=== PATIENT | female | born 1985 | race Caucasian/White ===

== ENCOUNTER 2021-03-08 05:48 | Day surgery (SDC) | payer BC, SELFPAY ==
[2021-01-10 14:27] VITALS: BMI 41.9
--- NOTE | 2021-03-06 10:51 | VDLE_ITS ---
Reason For Study: R/O DVT RIGHT LEFT GSV is normal. GSV is normal. CFV is compressible, spontaneous, phasic, CFV is compressible, spontaneous, phasic, competent and demonstrates normal competent, and demonstrates normal augmentation. augmentation. FV is compressible, spontaneous, phasic, FV is compressible, spontaneous, phasic, competent and demonstrates normal competent and demonstrates normal augmentation. augmentation. POP V is compressible, spontaneous, phasic, POP V is compressible, spontaneous, phasic, competent and demonstrates normal competent and demonstrates normal augmentation. augmentation. T/P Trunk is compressible. T/P Trunk is compressible. PTV is compressible. PTV is compressible. RT PerV is compressible. LT PerV is compressible. Procedure This is a venous duplex using B-mode, color flow and spectral Doppler. Exam performed in department. A preliminary report was called and/or faxed to Juan. VL/Venous Duplex US - Tay Extrem Interpretation Summary No evidence for acute deep venous thrombosis bilateral lower extremities with p atent and compressible bilateral great saphenous veins. Ordering Physician: Jovita Martinez Referring Physician: Lisa Rodriguez Performed By: Malu Adams RVT
[2021-03-08] VITALS (9 sets, daily range): BP systolic 103–135; BP diastolic 45–97; PULSE 75–84; RESP 16–82; TEMP 36.3–36.8; O2SAT 16–97; BMI 42.3
[2021-03-08 06:24] LABS: Internal QC Validated? YES +Cl - CLEAR BKGD; Pregnancy, Urine Negative Negative
[2021-03-08] MEDS: Lactated Ringers 1,000 ML 100 ML IV ×2 (06:38→08:20)
--- NOTE | 2021-03-08 07:26 | PCM.HP.BLA ---
History and Physical I have re-examined the patient. There are no clinical changes since date of exam. Intake Intake Visit Reasons: LEFT KNEE Is patient in pain?: Yes Allergies Penicillins Allergy (Severe, Verified 01/10/21 14:28) anaphalxis strawberry Allergy (Verified 01/10/21 14:28) anaphalxis loratadine [From Claritin] Adverse Reaction (Severe, Verified 01/10/21 14:28) out of body experience Medications cyproheptadine 4 mg tablet 4 mg PO tab 01/10/21 [History Confirmed 02/20/21] diazepam 5 mg tablet tab PO 01/10/21 [History Confirmed 02/20/21] gemfibrozil 600 mg tablet tab PO 01/10/21 [History Confirmed 02/20/21] nadolol 40 mg tablet ea PO 01/10/21 [History Confirmed 02/20/21] omeprazole 20 mg capsule,delayed release ea PO 01/10/21 [History Confirmed 02/20/21] topiramate 100 mg tablet tab PO 01/10/21 [History Confirmed 02/20/21] HPI LEFT KNEE: Surgical H&P: Yes Details: Parts of this documentation were recorded by a scribe, this documentation accurately reflects the service provided and the decisions made by me, TOBIAS Mittal 02/20/21 1100. MANUEL LONGORIA is a 35 year old F here today for F/U on left knee. She is here to sign surgery consent for left knee meniscus repair vs meniscectomy. Patient had to be off her control for 30 days prior to surgery d/t her increased risk of developing a blood clot post op. She states that she stopped her control and has been off this since 02/02/2021. Ortho Exam Left Knee Skin/Wound: No ecchymosis, No erythema, No swelling Contralateral Normal: Yes Homans Sign: No Knee ROM: Yes ROM-Extension -20 to 0, Yes ROM-Flexion 0-140 KNEE: No acute abnormalities or deformities of the left knee. Assessment & Plan Problems 1. Acute medial meniscus tear of left knee, subsequent encounter S83.441W 2. Acute lateral meniscus tear of left knee, subsequent encounter S83.673D Plan Patient presents the office today to sign surgical consent for left knee arthroscopy for a meniscal repair versus meniscectomy. The procedure itself was discussed in detail with patient and all of her questions regarding the surgery were discussed as well. We discussed that recovery will be based on the whether or not there are meniscal repairs versus meniscectomies. We did discuss the difference in these 2 types of surgeries as well as the anatomy and the pathophysiology of the injury. Patient may be in a T ROM brace postoperatively depending on again meniscus repair versus meniscectomy . Risks of the surgery include but are not limited to blood loss, blood clot, infection, neurovascular injuries, failure of procedure, loss of limb loss of life from anesthesia, and arthritis if there is meniscectomies. We also discussed COVID-19 risks for an in-hospital procedure. Patient be contacted by our office to set up the day of her surgery. She will not know the time of her surgery till the day before. Patient will be contacted by the surgery department for presurgery/preanesthesia testing. She will also receive a COVID-19 test approximate 72 hours prior to the procedure. Patient was given antimicrobial cleansed to be used nightly for 3 nights and then the morning of her surgery. She can notify our office in the meantime if she has any other concerns, complaints, or questions. This note was generated with [employer] dictation software. It may contain incorrect words, spelling, and punctuation that were not noted in checking the note before signing. Coding Level of Care Code Off vis,est,level 2 Diagnoses Acute medial meniscus tear of left knee, subsequent encounter S83.242D ??Encounter type: subsequent encounter Acute lateral meniscus tear of left knee, subsequent encounter S83.282D ??Encounter type: subsequent encounter COVID (Procedure Consent) Procedure Criteria Procedure Criteria: Yes Elective The surgeon/proceduralist and patient have discussed in detail the risk of exposure to and/or potential harm posed by the COVID-19 virus with having a surgery/procedure at this time versus the risk of? delaying the surgery/procedure. It is not possible to know either the risk of delaying the surgery or procedure or chance of getting an infection with perfect accuracy, but a joint decision was made between the patient and the surgeon/proceduralist ?to proceed at this time with the scheduled surgery/procedure as indicated on the consent form.
--- NOTE | 2021-03-08 07:29 | PCM.DC.ORTHO ---
Discharge Diet: No Restrictions - asa 325 bid start postop day 1, elevate, ice, ankle pumps as discussed, call with concerns, wbat left leg, may get incision wet and change dressings pod4 Discharge Activity: May Not Drive May shower in (days): 1 Ice area for (Minutes): 20 - Every hour while awake. Weight Bearing Status: Weight bearing as tolerated Keep extremity elevated above heart level: Operative Extremity Call your doctor if your incision/area has: Continuous Slow Oozing, Sudden Increased Bleeding, Increased Pain/ Swelling, Increased Redness, Foul Smelling Discharge Call your doctor if you observe: Fever of 101 or Higher, Coldness, Increased Pain, Numbness or Tingling, Change in Color, Calf discomfort Allergies/Adverse Reactions: Allergies Penicillins Allergy (Severe, Verified 03/08/21 06:05) anaphalxis strawberry Allergy (Verified 03/08/21 06:05) anaphalxis loratadine [From Claritin] Adverse Reaction (Severe, Verified 03/08/21 06:05) out of body experience Medications to take at Discharge cyproheptadine 4 mg tablet 4 mg PO QHS tab 01/10/21 gemfibrozil 600 mg tablet 600 mg PO BID 01/10/21 nadolol 40 mg tablet 40 mg PO QHS 01/10/21 omeprazole 20 mg capsule,delayed release 40 mg PO QHS 01/10/21 topiramate 100 mg tablet 100 mg PO BID 01/10/21 Desogestrel-Ethinyl Estradiol [Enskyce 28 Tablet] 1 each PO DAILY 03/01/21 Eletriptan Hydrobromide [Relpax] 40 mg PO .X1 PRN 03/01/21 Magnesium Glycinate [Mag Glycinate] 100 mg PO QHS 03/01/21 Hydrocodone Bitart/Apap 5-325 [Cameron 5MG-325MG] 1 - 2 tablet PO Q6H PRN PRN 5 Days #40 tab 03/08/21 Ondansetron [Zofran] 8 mg PO Q8H PRN PRN #20 tab 03/08/21 The following prescriptions were given: Hydrocodone Bitart/Apap 5-325 [Cameron 5MG-325MG] 1 - 2 tablet PO Q6H PRN PRN 5 Days #40 tab PRN Reason: Pain Transmission Status: Received by [facility] Ondansetron [Zofran] 8 mg PO Q8H PRN PRN #20 tab PRN Reason: Nausea Transmission Status: Received by [facility] Primary Care Physician: Lisa Rodriguez MD [Primary Care Provider] - Test Results: Test results from this visit will be discussed in further detail at your follow-up appointment, if applicable. Please Follow Up With: Jovita Martinez, - [phone]
--- NOTE | 2021-03-08 07:30 | PCM.OPRPT ---
Report of Operation Date of Procedure: 03/08/21 Pre-Operative Diagnosis: left knee medial and lateral meniscus tears Post-Operative Diagnosis: same Surgery/Procedure Performed:: saltracy, bakari meniscectomy, patella chondroplasty, limited synovectomy assistant professor of archaeology: Den Polanco Type of Anesthesia:: General Anesthesiologist: Abdulaziz Saravia Estimated Blood Loss (mL): min Fluids Replaced: 600cc lr Description of Procedure: Preop note Patient is 35-year-old female who had a twisting injury to her left knee with pain on the lateral aspect. 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 Patient has had extensive DVT work-up which was negative she had negative Dopplers as she has varicosities and is on control. She did stop the control a month ago she has no calf pain this morning negative Homans this morning again a negative Doppler we did discuss risks of surgery risk include but not limited to blood loss, blood clot, infection, neurovascular, failure procedure, loss through loss of life limb and loss of life. We did discuss the patient will also be on aspirin 325 twice daily to start tomorrow morning and wear ANTONY stockings. Patient was aware and agreement of plan will proceed with left knee arthroscopy repair as indicated. Operative note Patient seen examined preop holding area. Left knee was marked. Patient brought to the operating room placed supine on the operating table. Signed, anesthesia, antibiotics were ministered. Left leg was prepped and draped in usual sterile technique with a tourniquet around her upper thigh. All bony promises well-padded SCDs placed on her contralateral limb. We marked out our anterior lateral anteromedial plate portal placement. The left leg was then elevated exsanguinated tourniquet was raised for pressure of 275 torr. Timeout was performed. Then created anterior lateral portal with 11 blade began our diagnostic arthroscopy. She had some grade 2 fibrillated changes in inferior pole patella but her trochlea was intact as well as her patella. The moved to the medial joint line. Created anterior medial portal under direct visualization. We probed the medial meniscus with which was intact and stable probing. The medial femoral condyle medial tibial plateau were intact and stable probing. The ACL PCL were present within the notch. The lateral meniscus had a intrasubstance full-thickness tear in the portion of the and mid body she had a discoid variant was and so we did resect the the tear which was again at the intersection between the anterior horn posterior horn of the medial meniscus and resected the little bit of the discoid variant lateral meniscus to a stable rim. We then reinserted a shaver to ensure that we had a stable meniscus remaining which we did have. The inferior pole of the patella was gently debrided back as well we did also perform a limited synovectomy of the anterior lateral anteromedial recesses of the knee and she was quite thickened and hyperemic in this aspect as well and this is where she was having pain. We irrigated the knee with copious amounts of sterile saline. Tourniquet was deflated. Portals were closed with interrupted 4-0 nylon stitches sterile dressings were applied. Patient taught procedure well no complication transferred recovery room stable condition Postoperative note Weight-bear as tolerated Aspirin 325 twice daily Pharmacy has prescriptions We will get pictures to family in 2 weeks Call with increased pain numbness tingling further issues arise Dragon disclaimer This note was generated with [employer] dictation software. It may contain incorrect words, spelling, and punctuation that were not noted in checking the note before signing.
[2021-03-08] MEDS: Epinephrine (1 mg/ml) 1 MG/ML VIAL (07:45)
[2021-03-08] MEDS: Bupiv/Epi 0.25% 30 ML Vial (08:13)
[2021-03-08] MEDS: Mupirocin Ointment 22gm Tube 1 APPLIC (08:14)
[2021-03-08] MEDS: HYDROcodone Bitartrate/Apap 5/325 Tablet PO (09:59)
== END 2021-03-08 10:38 | disposition home or self-care (01) ==
LOC: SDC 05:48 → AC 05:50
PROVIDERS: Anesthesiology; PCP Internal Medicine; Referring Provider Orthopaedic Surgery; Visit Provider Orthopaedic Surgery
PROC: (CPT 29882; principal; 2021-03-08 07:10)
DX: S83.282A Other tear of lateral meniscus, current injury, left knee, initial encounter (principal); S83.242A Other tear of medial meniscus, current injury, left knee, initial encounter; I83.93 Asymptomatic varicose veins of bilateral lower extremities; K21.9 Gastro-esophageal reflux disease without esophagitis; E78.00 Pure hypercholesterolemia, unspecified; G47.30 Sleep apnea, unspecified; Z82.49 Family history of ischemic heart disease and other diseases of the circulatory system; Z87.891 Personal history of nicotine dependence; Z79.899 Other long term (current) drug therapy; Z20.822 Contact with and (suspected) exposure to COVID-19; X50.1XXA Overexertion from prolonged static or awkward postures, initial encounter; Y93.89 Activity, other specified; Y92.89 Other specified places as the place of occurrence of the external cause; Y99.8 Other external cause status
CPT/HCPCS: 29881; 81025; 87426; 93970; C9803; J7120; J2405

== ENCOUNTER → 2025-03-03 | Outpatient (CLI) | payer OTHER, SELFPAY ==
--- NOTE | 2025-03-03 10:46 | RAD_ITS ---
EXAM: XR Abdomen, 1 View CLINICAL INDICATION: KUB- KIDNEY STONES TECHNIQUE: Frontal supine view of the abdomen/pelvis. COMPARISON: No relevant prior studies available. FINDINGS: GASTROINTESTINAL TRACT: Fecal retention in the colon consistent with constipation. No dilation. BONES/JOINTS: Unremarkable. No acute fracture. RAD/Abdomen Single View IMPRESSION: Fecal retention in the colon consistent with constipation. Stool burden limits evaluation for subtle renal calculi. Reading Location: [facility]
== END | disposition home or self-care (01) ==
LOC: MTRAD 10:44
PROVIDERS: PCP Internal Medicine; Referring Provider Urology; Visit Provider Urology
DX: N20.0 Calculus of kidney (principal)
CPT/HCPCS: 74018

== ENCOUNTER → 2025-04-12 | Outpatient (CLI) | payer OTHER, SELFPAY ==
--- NOTE | 2025-04-12 14:02 | US_ITS ---
PROCEDURE: KIDNEY AND BLADDER 04/12/2025 REASON FOR EXAM: KIDNEY STONE TECHNIQUE: Bilateral renal ultrasound. COMPARISON: None FINDINGS: Kidneys: Normal renal sizes, parenchymal thicknesses, and echotextures. [place]: No hydronephrosis. Cysts or Masses: No cysts or large solid renal masses. RIGHT Kidney Size: 13.2 cm x 5.3 cm x 5.4 cm Volume: 197 mL Cortical Thickness (if discernible): 1.3 cm (>6mm is normal) LEFT Kidney Size: 12.3 cm x 6.5 cm x 6.4 cm Volume: 269.7 mL Cortical Thickness (if discernible): 1.3 cm (>6mm is normal) US/Kidney and Bladder IMPRESSION: NORMAL RENAL ULTRASOUND. Reading Location: [id number]
== END | disposition home or self-care (01) ==
LOC: US 13:58
PROVIDERS: PCP Internal Medicine; Referring Provider Urology; Visit Provider Urology
DX: N20.0 Calculus of kidney (principal)
CPT/HCPCS: 76770